=== PATIENT | female | born 1945 | race Caucasian/White ===

== ENCOUNTER 2017-05-31 18:40 | Emergency (ER) | payer OTHER ==
[2017-05-31 18:45] VITALS: TEMP 98.6
--- NOTE | 2017-05-31 19:09 | EDPHY ---
H & P Smoking Status: Unknown if ever smoked Time Seen by Provider: 05/31/17 18:53 HPI/ROS: CHIEF COMPLAINT: right wrist pain HISTORY OF PRESENT ILLNESS: 72-year-old female [id number] complaining of acute right wrist pain arrives via private vehicle complaining of mechanical FOOSH after she misstepped landed on her outstretched right arm. No paresthesia. No proximal pain or injury. No head injury. Occurred shortly prior to arrival. She is on daily Coumadin. PRIMARY CARE PROVIDER: Ean REVIEW OF SYSTEMS: A ten point review of systems was performed and is negative with the exception of the items mentioned in the HPI PHYSICAL EXAM (Prior to examination, patient consented to physical exam, hands were washed and my usual and customary physical exam procedures followed) 1) GENERAL: Well-developed, well-nourished, alert and oriented. Appears uncomfortable. 2) HEAD: Normocephalic 3) HEENT: Pupils equal, round, reactive to light bilaterally. 4) LUNGS: Breathing comfortably. 5) MUSCULOSKELETAL: Dorsal deformity noted, tender to palpation distal radius Soft compartments. Normal coloration. 6) SKIN: intact. No tenting. Dorsal deformity noted. 7) VASCULAR: pulses and cap refill present are brisk 8) NEUROLOGIC: Radial, ulnar, median nerve function intact with no deficits appreciated on exam DIFFERENTIAL DIAGNOSIS: in no particular order including but not limited to fracture, sprain, compartment syndrome (Elsie Marino) Constitutional: Initial Vital Signs Temperature (C) 37.0 C 05/31/17 18:43 Heart Rate 76 05/31/17 18:43 Respiratory Rate 18 05/31/17 18:43 Blood Pressure 97/62 L 05/31/17 18:43 O2 Sat (%) 98 05/31/17 18:43 O2 Delivery Mode Room Air Allergies/Adverse Reactions: No Known Allergies Allergy (Unverified 05/31/17 18:43) Home Medications: Medication Instructions Recorded Coumadin 05/31/17 Digoxin 05/31/17 Diltiazem ER 05/31/17 oxyCODONE/APAP 5/325 [Percocet 1 tab PO Q6 #10 tab 05/31/17 5/325] MDM/Departure - [facility] Imaging Results: Imaging Impressions Wrist X-Ray 05/31/17 18:46 Impression: Distal radial and ulnar fractures. Wrist X-Ray 05/31/17 20:25 Impression: Improved alignment following reduction and splinting. Images reviewed by myself (Elsie Marino) Procedures: 8:15 p.m. Procedure: Fracture reduction Indication: Fracture of the right distal radius Indications, risks and benefits discussed with patient [and parent] and consent obtained. A hematoma block of 0.5% bupivicaine placed by myself. Traction and countertraction applied achieving a visible and palpable reduction. The area was splinted with [splint]. After application of the splint I returned and re- examined the patient. The splint was adequately immobilizing the joint and distal to the splint the patient's circulation and sensation were intact. Patient shows no signs of compartment syndrome. Was given orthopedic precautions. (Elsie Marino) Medications Given: Discontinued Medications Oxycodone/Acetaminophen (Percocet 5/325) 1 tab PO EDNOW ONE Stop: 05/31/17 19:13 Last Admin: 05/31/17 19:30 Dose: 1 tab Oxycodone/Acetaminophen (Percocet 5/325mg Prepack#4) 1 btl TAKEHOME EDNOW ONE Stop: 05/31/17 20:39 Last Admin: 05/31/17 20:46 Dose: 1 btl ED Course/Re-evaluation: Serial evaluations performed on patient most recently at 8:55 p.m., discussed her imaging results, post reduction. She remains neurovascularly intact. She will plan on follow-up a [facility]. Discharged with analgesia. Usual and customary orthopedic precautions instructions provided. Discussed case with secondary supervising physician Dr Dooley in ER. (Elsie Marino) I did not see this patient while she was in the emergency department. However her care was discussed with the PA while the patient was in the department. I agree with treatment plan and management (Ramos Dooley) - Depart Disposition: Home, Routine, Self-Care Clinical Impression: Fracture of right distal radius Qualifiers: Encounter type: initial encounter Fracture type: closed Fracture morphology: Colles' Qualified Code(s): S52.531A - Colles' fracture of right radius, initial encounter for closed fracture Condition: Good Instructions: Oxycodone/Acetaminophen (By mouth), Wrist Fracture in Adults (ED) Additional Instructions: Return to the ER immediately if you experience discoloration, have worsening pain, numbness, tingling, or any other symptoms that concern you. If you received x-rays in the emergency department today, be advised, that ligamentous , tendon, muscular, and other non-bony injury cannot be fully ruled out. Try to keep your affected extremity elevated above the level of your chest, and keep cold packs on the affected area, for the next 48 hours. Prescriptions: oxyCODONE/APAP 5/325 [Percocet 5/325] 1 tab PO Q6 #10 tab Referrals: Follow-up, with your [facility] on Saturday [Other] - As per Instructions
[2017-05-31] MEDS ORDERED: OXYCODONE/APAP 5/325 TAB PO ONE (19:12)
[2017-05-31] MEDS ORDERED: OXYCODONE/APAP 5/325MG PREPACK#4 BTL TAKEHOME ONE (20:38)
[2017-05-31 21:12] VITALS: BP 126/73; PULSE 78; RESP 16; O2SAT 92
== END 2017-05-31 21:11 | disposition home or self-care (01) ==
PROC: 0PSHXZZ Reposition Right Radius, External Approach (ICD-10-PCS; principal; 2017-05-31)
DX: S52.531A Colles' fracture of right radius, initial encounter for closed fracture (principal); Z79.01 Long term (current) use of anticoagulants; W18.39XA Other fall on same level, initial encounter
CPT/HCPCS: 25605; 73100; 73110; 99283; A4565